=== PATIENT | female | born 1985 | race African-American/Black ===

== ENCOUNTER 2018-08-21 18:51 | Emergency (ER) | payer MEDICAID ==
[~2018-08-21] VITALS: Ht 170.2 cm; Wt 109.0 kg
[2018-08-21 22:18] VITALS: BP 116/50
== END 2018-08-21 22:30 | disposition left against medical advice (07) ==
LOC: ER 19:57
DX: R51 Headache (principal); Z53.21 Procedure and treatment not carried out due to patient leaving prior to being seen by health care provider